=== PATIENT | female | born 1975 | race Caucasian/White ===

== ENCOUNTER 2018-10-08 10:28 | Emergency (ER) | payer MEDICAID ==
[2018-10-08] MEDS: CEPHALEXIN 500 MG CAP PO (12:51)
[2018-10-08] MEDS: IBUPROFEN 600 MG TAB PO (12:51)
[2018-10-08] MEDS: DIPHTH/TET/ACEL PERTUSS (ADULT) 0.5 ML VIAL IM* (12:52)
== END 2018-10-08 13:45 | disposition home or self-care (01) ==
LOC: FTE 13:45
DX: T24.122A Burn of first degree of left knee, initial encounter (principal); X19.XXXA Contact with other heat and hot substances, initial encounter; Y92.9 Unspecified place or not applicable; Z23 Encounter for immunization; Z77.098 Contact with and (suspected) exposure to other hazardous, chiefly nonmedicinal, chemicals
CPT/HCPCS: 90471; 90715; 99283-25